=== PATIENT | female | born 2000 | race Caucasian/White ===

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

== ENCOUNTER 2023-04-27 17:53 | Emergency (ER) | payer MEDICAID ==
[~2023-04-27] VITALS: Ht 167.6 cm; Wt 65.0 kg
[2023-04-27 17:55] VITALS: O2SAT 99
[2023-04-27 19:00] VITALS: BP 149/127; PULSE 100; RESP 16; TEMP 97.5
[2023-04-27] MEDS: ACETAMINOPHEN 325MG TABLET PO ONE (19:00)
[2023-04-27] MEDS: IBUPROFEN 400MG TABLET PO ONE (19:00)
[2023-04-27] MEDS ORDERED: TOPUD PO (19:50)
[2023-04-27] MEDS ORDERED: IBUP-2028 MT (19:50)
== END 2023-04-27 20:20 | disposition home or self-care (01) ==
LOC: ER 17:53
DX: R51.9 Headache, unspecified (principal); Y04.0XXA Assault by unarmed brawl or fight, initial encounter; Y93.89 Activity, other specified; Y92.89 Other specified places as the place of occurrence of the external cause; Y99.8 Other external cause status
CPT/HCPCS: 70486; 99284